=== PATIENT | male | born 1975 | race African-American/Black ===

== ENCOUNTER 2019-12-07 12:28 | Emergency (ER) | payer BC ==
[2019-12-07] MEDS ORDERED: NORMAL SALINE 1000 ML 1,000 ML IV ONE (12:50)
[2019-12-07] MEDS ORDERED: ACTIVATED CHARCOAL 25 GM BOTTLE PO STA (12:51)
[2019-12-07 13:06] LABS: ABSOLUTE EOSINOPHILS # (AUTO) 0.2 10^3/uL (0.0-0.6); ABSOLUTE LYMPHOCYTES (AUTO) 3.8 10^3/uL (0.5-4.7); ABSOLUTE MONOCYTES (AUTO) 0.6 10^3/uL (0.1-1.4); ABSOLUTE NEUT (AUTO) 6.5 10^3/uL (1.7-8.2); BASOPHILS % (AUTO) 0.3 % (0-2); HEMATOCRIT 40.6 % (37.9-51.0); HEMOGLOBIN 13.5 g/dL (13.5-17.0); LYMPHOCYTES % (AUTO) 33.9 % (13-45); MEAN CORPUSCULAR HEMOGLOBIN 29.9 pg (27.0-33.4); MEAN CORPUSCULAR HGB CONC 33.3 g/dL (32.0-36.0); MEAN CORPUSCULAR VOLUME 90 fl (80-97); MONOCYTES % (AUTO) 5.2 % (3-13); PLATELET COUNT 198 10^3/uL (150-450); RED BLOOD COUNT 4.52 10^6/uL (4.35-5.55); RED CELL DISTRIBUTION WIDTH 13.5 % (11.5-14.0); SEGMENTED NEUTROPHILS % (AUTO) 58.6 % (42-78); TOTAL CELLS COUNTED % (AUTO) 100 %; WHITE BLOOD COUNT 11.1 10^3/uL (4.0-10.5)
--- NOTE | 2019-12-07 13:18 | ER Document Report ---
ED Psych Disorder / Suicide - General Chief Complaint: Overdose Stated Complaint: OVERDOSE Time Seen by Provider: 12/07/19 12:39 Primary Care Provider: TEMI TREVINO MD [ACTIVE STAFF] - Follow up as needed Notes: 44-year-old man who presents to the emergency department with a history of ingestion of approximately 24 Seroquel tablets today in an attempt to harm himself. The Seroquel tablets are 25 mg each. He denies ingestion of any other medications at this time. He will not give us any insight as to why other than "a lot of things are going on". He denies a history of a prior suicide attempt. He denies any associated medical problems, no diabetes mellitus, no hypertension. - Related Data Allergies/Adverse Reactions: No Known Allergies Allergy (Verified 12/07/19 12:32) Past Medical History - Social History Smoking Status: Current Every Day Smoker Family History: Reviewed & Not Pertinent Neurological Medical History: Reports: Hx Migraine Review of Systems - Review of Systems Notes: Constitutional: Negative for fever. HENT: Negative for sore throat. Eyes: Negative for visual changes. Cardiovascular: Negative for chest pain. Respiratory: Negative for shortness of breath. Gastrointestinal: Negative for abdominal pain, vomiting or diarrhea. Genitourinary: Negative for dysuria. Musculoskeletal: Negative for back pain. Skin: Negative for rash. Neurological: Negative for headaches, weakness or numbness. Psychiatric + suicidal 10 point ROS negative except as marked above and in HPI. Physical Exam - Vital signs Vitals: Temp Pulse Resp BP Pulse Ox 97.7 F 98 16 109/67 96 12/07/19 12:32 12/07/19 12:32 12/07/19 12:32 12/07/19 12:32 12/07/19 12:32 - Notes Notes: PHYSICAL EXAMINATION: Physical Exam: General: Well-nourished well-developed 44-year-old male in no acute distress HEENT: NC/AT, pupils equal round and reactive to light, MM moist,nares clear, oropharynx clear, airway patent Neck: supple, no adenopathy, no masses. Good range of motion Lungs: clear, no wheezing, no rales no rhonchi CVS: Regular rate and rhythm no murmur gallop or rub Abdomen: Soft, active, nontender, no masses, no hepatosplenomegaly Ext: No edema, clubbing or cyanosis. Neuro: Alert and responsive, moving all 4 extremities on command, cranial nerves intact, no focal findings Skin: Intact no open lesions, no rash PSYCH: Admit to suicidal thoughts, suicidal attempt, depression, denies auditory or visual hallucinations. Course - Re-evaluation Re-evalutation: 12/07/19 13:09 Poison control was contacted, agitation, sedation/somnolence, QT prolongation, possible arrhythmias and hypotension are possible. They recommended a 6-hour observation. Stated that if the patient does not have complications with and that. Then he is likely cleared from possible adverse effects. Given his ingestion was approximately 1 hour prior to this exam, activated charcoal can be given. An involuntary commitment will be performed and the patient will be held for further psychiatric evaluation. - Vital Signs Vital signs: Temp Pulse Resp BP Pulse Ox 98.3 F 92 20 131/91 H 100 12/08/19 10:10 12/08/19 10:10 12/08/19 10:10 12/08/19 10:10 12/08/19 10:10 - Laboratory Result Diagrams: 12/07/19 12:48 12/07/19 12:48 Laboratory results interpreted by me: 12/07/19 12/07/19 12:48 12:48 WBC 11.1 H Sodium 134.8 L Potassium 3.1 L Glucose 185 H Salicylates < 1.0 L Acetaminophen < 10 L I have reviewed laboratory data and used this information for the treatment decisions regarding the patient. - EKG Interpretation by Hi EKG shows normal: Sinus rhythm, [place] - Normal axis, QRS Complexes - LVH, poor R wave progression., ST-T Waves - No ST or T wave abnormalities, no ischemic changes. Rate: Normal - 89 Rhythm: NSR [place]/QRS: IVCD Discharge - Discharge Clinical Impression: Suicide attempt Deliberate medication overdose Qualifiers: Encounter type: initial encounter Qualified Code(s): T50.902A - Poisoning by unspecified drugs, medicaments and biological substances, intentional self-harm, initial encounter Depression Qualifiers: Depression Type: unspecified Qualified Code(s): F32.9 - Major depressive disorder, single episode, unspecified Condition: Good Disposition: PSYCH HOSP/UNIT Referrals: TEMI TREVINO MD [ACTIVE STAFF] - Follow up as needed
[2019-12-07 13:27] LABS: ALBUMIN 3.7 g/dL (3.5-5.0); ALKALINE PHOSPHATASE 71 U/L (38-126); ANION GAP 9 (5-19); ASPARTATE AMINO TRANSFERASE 18 U/L (17-59); BILIRUBIN,TOTAL 0.8 mg/dL (0.2-1.3); BLOOD UREA NITROGEN 7 mg/dL (7-20); CALCIUM 9.2 mg/dL (8.4-10.2); CARBON DIOXIDE 22 mmol/L (22-30); CHLORIDE 104 mmol/L (98-107); GLUCOSE 185 mg/dL (75-110); POTASSIUM 3.1 mmol/L (3.6-5.0); TOTAL PROTEIN 6.8 g/dL (6.3-8.2)
[2019-12-07 13:28] LABS: ACETAMINOPHEN < 10 ug/mL (10-30); ALCOHOL < 10 mg/dL (NONE DETECTED); SALICYLATE < 1.0 mg/dL (2.0-20.0)
[2019-12-07 14:24] LABS: URINE AMPHETAMINES SCREEN NEGATIVE; URINE BARBITURATES SCREEN NEGATIVE; URINE BENZODIAZEPINES SCREEN NEGATIVE; URINE COCAINE SCREEN NEGATIVE; URINE METHADONE SCREEN NEGATIVE; URINE PHENCYCLIDINE SCREEN NEGATIVE
--- NOTE | 2019-12-07 14:25 | PSYCHOLOGICAL NOTE ---
Psych Note - Psych Note Date seen by psych provider: 12/07/19 Time seen by psych provider: 13:30 Psych Note: Reason for consult: Intentional overdose Patient arrived to [facility] ED via EMS after intentional overdose of Seroquel. Patient reports "I just poured a handful, I did not do a count." Patient discloses that he did this because he "did not want to suffer." He states that it is his life that makes him suffer. Patient has an outpatient mental health provider with [facility] services for both medication management and therapy. Patient's last therapy appointment was with Tangela Lane. Patient reports he has been going to therapy for approximately 3 months. Patient was just started on Seroquel this week, no previous psychiatric medications. Patient reports "I do not want to but I do not want to suffer so if I have to to make that happen." Patient only minimally engages when discussing any possible further triggers other than "his life." He states he has depression, anxiety and trouble sleeping, and is not going to take the time to explain why he does not want to suffer or live anymore. Patient is alert and orientated to person, place, time and circumstance. Mood is depressed and irritable with blunted affect. Patient presents after intentional overdose of Seroquel; patient endorses suicidal ideation. Patient denies homicidal ideation. Delusions are absent behaviors congruent with an intact reality based presentation i.e. organized and linear thought process. Eye contact is poor as patient refuses to open his eyes while speaking with clinician. Conversational speech is quiet but easily understood. Intellectual abilities appear to be within the average range. Attention and concentration are fair. Insight, judgment, impulse control are poor. Clinical presentation Intentional overdose Depressed and irritable with blunted affect Medication recommendations per [facility]'s contracted psychiatrist Dr Karen SALDIVAR are as follows: Zyprexa 2.5mg twice daily Buspar 5mg daily Impression\\plan: Patient is recommended for full IVC. Patient presents after intentional overdose on Seroquel. There is some possibility that patient's medication could have affected patient's presentation and increased suicidal ideation. Patient just started this medication approximately 4 days ago; he has never been on psychiatric medications previous. Patient will not fully engage with clinician with discussing triggers only stating that he was tired of "suffering" and that the trigger is his "life." Dr. Baig was consulted to care management of this patient; tending physicians in agreement with recom mendations and disposition.
[2019-12-07 14:45] LABS: URINE MARIJUANA (THC) SCREEN UNCONFIRMED POSITIVE
--- NOTE | 2019-12-07 21:42 | EKG REPORT ---
SEVERITY:- ABNORMAL ECG - SINUS RHYTHM NONSPECIFIC INTRAVENTRICULAR CONDUCTION DELAY LEFT VENTRICULAR HYPERTROPHY : Confirmed by: Nish Fay 07-Dec-2019 21:42:15
[2019-12-08] MEDS: BUSPIRONE HCL 10 MG TABLET PO SCH ×2 (10:31→17:57)
[2019-12-08] MEDS: OLANZAPINE 2.5 MG TABLET PO SCH ×2 (10:31→17:57)
--- NOTE | 2019-12-08 12:40 | PSYCHOLOGICAL NOTE ---
Psych Note - Psych Note Date seen by psych provider: 12/08/19 Time seen by psych provider: 10:55 Psych Note: Reason for consult: Intentional overdose Patient arrived to [facility] ED via EMS after intentional overdose of Seroquel. Check in Conducted: Patient today reports he feels like a prisoner and is upset that he is unable to call his publisher. 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 Patient reports being very upset he is unable to pay his publisher because his fifth book is set to be released to bookstores such as [employer]. Patient provided titles of books and his website listing his work; no books or website is listed with the information the patient provided. Clinical presentation Intentional overdose Delusions Medication recommendations per [facility]'s contracted psychiatrist Dr Karen SALDIVAR are as follows: Zyprexa 2.5mg twice daily Buspar 5mg daily Impression\plan: Patient is recommended for continued IVC. Patient presents after intentional overdose on Seroquel. 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 Patient provided information such as title of books, publisher's name, and his website that lists his work; none of the information provided can be confirmed through Internet searches. Patient has been accepted to [facility] for a.m. admission. Transportation will be requested. Dr. Baig was consulted to care management of this patient; tending physicians in agreement with recommendations and disposition.
[2019-12-08] MEDS ORDERED: NICOTINE 14 MG/24 HR PATCH.TD24 TD ONE (17:58)
--- NOTE | 2019-12-08 18:05 | ER Document Report ---
Doctor's Note Notes: 12/08/19 18:03 Progress note: Patient is a 44-year-old -[place] male who was seen here, sent by EMS for suicidal attempt by overdosing on Seroquel. Patient reports this was a sudden impulse he had out of frustration. States after taking the pills he immediately regretted it. He reports that he lives alone he called EMS himself because he realized he needed help. The patient was previously medically cleared. Today he is resting comfortably in the room. 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 He states he has plans for the future and no longer wishes to harm himself or anyone else. He is still currently being held under IVC. Plan is to transfer him tomorrow morning at 8 AM to [place], psychiatry team received acceptance from Dr. Licona. At this time the patient is stable without any medical complaint. General: Alert and oriented x4. Heart: Regular rate and rhythm. Lungs: Clear to auscultation bilaterally. Psych: Normal mood and affect. We will continue to monitor and reevaluate or transfer.
[2019-12-08] MEDS ORDERED: METHOCARBAMOL 750 MG TABLET PO ONE (22:50)
[2019-12-09] MEDS ORDERED: HYDROXYZINE PAMOATE 25 MG CAPSULE PO ONE (05:27)
--- NOTE | 2019-12-09 06:56 | ER Document Report ---
Doctor's Note Notes: 12/09/19 06:54 I evaluated the patient at bedside because nursing staff informed me that patient was complaining of chest pain. Patient states that he feels a tightness and discomfort in the middle of his chest with a vague sensation of shortness of breath. He states he has felt this many times in the past and states "I get this when I get stress". He states that he has had negative evaluation for this previously and was scheduled to get a routine echocardiogram for this outpatient in 3 days. He denies any other complaints. Obtaining chest x-ray and EKG to evaluate the chest pain, however patient is reporting that this is an ongoing intermittent thing.
--- NOTE | 2019-12-09 07:21 | RADIOLOGY REPORT (SQ) ---
EXAM DESCRIPTION: X-ray single view chest. CLINICAL HISTORY: 44 years Male, chest pain COMPARISON: None. TECHNIQUE: Single portable x-ray view of the chest performed on 12/09/2019 at 7:07 AM FINDINGS: The lungs are well expanded and are clear. There is no evidence of a pneumothorax. The cardiac silhouette is normal in size and configuration. The mediastinal contours are normal. No acute osseous abnormality is identified. No focal soft tissue abnormalities are seen. Lines and tubes: None. IMPRESSION: No evidence of acute intrathoracic disease.
[2019-12-09 09:28] VITALS: BP 143/85
--- NOTE | 2019-12-09 09:46 | ER Document Report ---
Doctor's Note Notes: 12/09/19 09:45 Progress note: Patient evaluated this morning at time of transfer. In no acute distress. He was previously complaining of some chest pain overnight. EKG was unremarkable for any acute ischemia or infarction. Unchanged from prior EKG. Sinus rhythm. Chest x-ray was negative for acute process. Patient was pain- free upon arrival of the officers to transport him. General: Well-appearing. Heart: Regular rate and rhythm. Lungs: Clear to auscultation bilaterally. Psych appropriate affect, pleasant. No suicidal or homicidal ideations. Patient is stable and appropriate for transfer.
--- NOTE | 2019-12-09 14:32 | EKG REPORT ---
SEVERITY:- NORMAL ECG - SINUS RHYTHM : Confirmed by: Rosanna Lopez MD 09-Dec-2019 14:31:52
== END 2019-12-09 09:30 ==
LOC: ER 12:28
DX: T43.591A Poisoning by other antipsychotics and neuroleptics, accidental (unintentional), initial encounter (principal); F32.9 Major depressive disorder, single episode, unspecified; F17.200 Nicotine dependence, unspecified, uncomplicated; X83.8XXA Intentional self-harm by other specified means, initial encounter
CPT/HCPCS: 93005 ×2; 99285; 96360; 36415; 80307 ×4; 85025; 80053; 71045; 93010 ×2; J3490 ×3; J7030